=== PATIENT | female | born 1945 | race Caucasian/White ===

== ENCOUNTER 2020-02-23 12:28 | Inpatient (IN) ==
[2020-02-23] MEDS ORDERED: Senna TAB 8.6 mg TAB FEED TUBE PRN (15:09)
[2020-02-23] MEDS ORDERED: Docusate LIQ 100 MG/10 ML UDC G TUBE PRN (15:10)
[2020-02-23] MEDS ORDERED: Dextrose 50% Syringe 50 ml 25 GM/50 ML SYRINGE IV PUSH PRN (15:12)
[2020-02-23] MEDS: Calcium Carbonate LIQ 1,250 mg/5 ml UDC FEED TUBE SCH ×2 (16:10→21:30)
[2020-02-23] MEDS: Insulin LISPRO 100 units/ml(*) SUBCUT SCH (18:00)
[2020-02-23] MEDS: Cephalexin SUSP ORALSYR 50 MG/ML FEED TUBE SCH ×2 (18:23→22:06)
[2020-02-23] MEDS: Heparin 5000 UNITS/ML VIAL(*) 1 ml vial SUBCUT SCH (21:26)
[2020-02-23] MEDS: QUINIDINE SULFATE 200 MG SCH (21:28)
[2020-02-23] MEDS: Famotidine SUSP ORALSYR 8 MG/ML G TUBE SCH (21:31)
[2020-02-24] MEDS: Insulin LISPRO 100 units/ml(*) SUBCUT SCH ×4 (00:11→19:38)
[2020-02-24 05:11] LABS: Albumin 2.4 g/dL (3.2-5.2); Albumin/Globulin Ratio 0.8 (1-3); BUN/Creatinine Ratio 42.2 (8-20); Calcium 8.3 mg/dL (8.6-10.3); EGFR African American 59.7 (>60); EGFR Non-African American 49.3 (>60); Globulin 2.9 g/dL (2-4); Potassium 4.6 mmol/L (3.5-5.0); Total Bilirubin 0.4 mg/dL (0.2-1.0); Total Protein 5.3 g/dL (6.4-8.9)
[2020-02-24 05:16] LABS: ABS Eosinophils 0.1 10^3/ul (0-0.6); ABS Lymphocytes 0.5 10^3/ul (1.0-4.8); ABS Monocytes 0.4 10^3/ul (0-0.8); Hematocrit 29 % (35-47); Hemoglobin 9.6 g/dL (12.0-16.0); Lymphocyte % 9.8 %; Mean Corpuscular HGB Conc 34 g/dL (31-36); Mean Corpuscular Hemoglobin 31 pg (27-31); Mean Corpuscular Volume 92 fL (80-97); Platelet Count 151 10^3/uL (150-450); Red Blood Count 3.11 10^6 /uL (3.70-4.87); Red Cell Distribution Width 19 % (10-15); White Blood Count 5.6 10^3/uL (3.5-10.8)
[2020-02-24] MEDS: Calcium Carbonate LIQ 1,250 mg/5 ml UDC FEED TUBE SCH ×3 (11:06→21:36)
[2020-02-24] MEDS: Cephalexin SUSP ORALSYR 50 MG/ML FEED TUBE SCH ×4 (11:06→21:30)
[2020-02-24] MEDS: Famotidine SUSP ORALSYR 8 MG/ML G TUBE SCH ×2 (11:07→21:28)
[2020-02-24] MEDS: Multivitamins ADULT w/MIN LIQ 15 ML UDC FEED TUBE SCH (11:07)
[2020-02-24] MEDS: Heparin 5000 UNITS/ML VIAL(*) 1 ml vial SUBCUT SCH ×2 (11:07→21:43)
[2020-02-24] MEDS: Potassium Chloride LIQUID 20 MEQ/15 ML LIQUID PEG TUBE SCH (11:08)
[2020-02-24] MEDS: QUINIDINE SULFATE 200 MG SCH ×2 (11:08→21:34)
[2020-02-25] MEDS: Insulin LISPRO 100 units/ml(*) SUBCUT SCH ×5 (00:17→23:52)
[2020-02-25 06:14] LABS: ABS Lymphocytes 0.6 10^3/ul (1.0-4.8); ABS Monocytes 0.3 10^3/ul (0-0.8); Eosinophil % 0.5 %; Hematocrit 28 % (35-47); Hemoglobin 9.4 g/dL (12.0-16.0); Lymphocyte % 9.6 %; Mean Corpuscular HGB Conc 34 g/dL (31-36); Mean Corpuscular Hemoglobin 31 pg (27-31); Mean Corpuscular Volume 92 fL (80-97); Mean Platelet Volume 7.6 fL (7.4-10.4); Platelet Count 148 10^3/uL (150-450); Red Blood Count 3.05 10^6 /uL (3.70-4.87); Red Cell Distribution Width 18 % (10-15); White Blood Count 6.6 10^3/uL (3.5-10.8)
[2020-02-25 06:31] LABS: Albumin 2.3 g/dL (3.2-5.2); Albumin/Globulin Ratio 0.8 (1-3); BUN/Creatinine Ratio 39.3 (8-20); Calcium 8.4 mg/dL (8.6-10.3); EGFR Non-African American 50.4 (>60); Globulin 2.9 g/dL (2-4); Potassium 4.6 mmol/L (3.5-5.0); Total Bilirubin 0.4 mg/dL (0.2-1.0); Total Protein 5.2 g/dL (6.4-8.9)
[2020-02-25] MEDS: Multivitamins ADULT w/MIN LIQ 15 ML UDC FEED TUBE SCH (11:40)
[2020-02-25] MEDS: Potassium Chloride LIQUID 20 MEQ/15 ML LIQUID PEG TUBE SCH (11:40)
[2020-02-25] MEDS: QUINIDINE SULFATE 200 MG SCH ×2 (11:40→21:27)
[2020-02-25] MEDS: Famotidine SUSP ORALSYR 8 MG/ML G TUBE SCH ×2 (11:40→21:23)
[2020-02-25] MEDS: Calcium Carbonate LIQ 1,250 mg/5 ml UDC FEED TUBE SCH ×3 (11:40→21:25)
[2020-02-25] MEDS: Cephalexin SUSP ORALSYR 50 MG/ML FEED TUBE SCH ×4 (11:40→21:22)
[2020-02-25] MEDS: Heparin 5000 UNITS/ML VIAL(*) 1 ml vial SUBCUT SCH ×2 (11:40→21:31)
[2020-02-26] MEDS: Insulin LISPRO 100 units/ml(*) SUBCUT SCH ×3 (06:06→18:25)
[2020-02-26 10:59] LABS: C Reactive Protein 66.76 mg/L (<8.01)
[2020-02-26] MEDS: Famotidine SUSP ORALSYR 8 MG/ML G TUBE SCH ×2 (11:44→21:40)
[2020-02-26] MEDS: Calcium Carbonate LIQ 1,250 mg/5 ml UDC FEED TUBE SCH ×3 (11:44→21:23)
[2020-02-26] MEDS: Heparin 5000 UNITS/ML VIAL(*) 1 ml vial SUBCUT SCH ×2 (11:44→21:38)
[2020-02-26] MEDS: Cephalexin SUSP ORALSYR 50 MG/ML FEED TUBE SCH ×4 (11:44→21:24)
[2020-02-26] MEDS: Multivitamins ADULT w/MIN LIQ 15 ML UDC FEED TUBE SCH (11:45)
[2020-02-26] MEDS: Potassium Chloride LIQUID 20 MEQ/15 ML LIQUID PEG TUBE SCH (11:45)
[2020-02-26] MEDS: QUINIDINE SULFATE 200 MG SCH ×2 (11:45→21:24)
[2020-02-27] MEDS: Insulin LISPRO 100 units/ml(*) SUBCUT SCH ×5 (00:52→23:55)
[2020-02-27] MEDS: Multivitamins ADULT w/MIN LIQ 15 ML UDC FEED TUBE SCH (09:16)
[2020-02-27] MEDS: Calcium Carbonate LIQ 1,250 mg/5 ml UDC FEED TUBE SCH ×3 (09:16→20:41)
[2020-02-27] MEDS: Potassium Chloride LIQUID 20 MEQ/15 ML LIQUID PEG TUBE SCH (09:16)
[2020-02-27] MEDS: Cephalexin SUSP ORALSYR 50 MG/ML FEED TUBE SCH ×4 (09:16→20:43)
[2020-02-27] MEDS: Heparin 5000 UNITS/ML VIAL(*) 1 ml vial SUBCUT SCH ×2 (09:17→20:44)
[2020-02-27] MEDS: Famotidine SUSP ORALSYR 8 MG/ML G TUBE SCH ×2 (09:18→20:43)
[2020-02-27] MEDS: QUINIDINE SULFATE 200 MG SCH ×2 (09:22→20:42)
[2020-02-28] MEDS: Insulin LISPRO 100 units/ml(*) SUBCUT SCH ×4 (05:37→23:37)
[2020-02-28 05:52] LABS: ABS Lymphocytes 0.5 10^3/ul (1.0-4.8); ABS Monocytes 0.4 10^3/ul (0-0.8); Eosinophil % 0.6 %; Hematocrit 27 % (35-47); Hemoglobin 8.9 g/dL (12.0-16.0); Lymphocyte % 6.7 %; Mean Corpuscular HGB Conc 34 g/dL (31-36); Mean Corpuscular Hemoglobin 31 pg (27-31); Mean Corpuscular Volume 92 fL (80-97); Mean Platelet Volume 7.7 fL (7.4-10.4); Platelet Count 169 10^3/uL (150-450); Red Blood Count 2.89 10^6 /uL (3.70-4.87); Red Cell Distribution Width 19 % (10-15); White Blood Count 7.3 10^3/uL (3.5-10.8)
[2020-02-28 06:21] LABS: Albumin 2.5 g/dL (3.2-5.2); Albumin/Globulin Ratio 0.8 (1-3); BUN/Creatinine Ratio 35.5 (8-20); Calcium 8.4 mg/dL (8.6-10.3); EGFR Non-African American 50.4 (>60); Potassium 4.7 mmol/L (3.5-5.0); Total Bilirubin 0.4 mg/dL (0.2-1.0); Total Protein 5.5 g/dL (6.4-8.9)
[2020-02-28] MEDS: QUINIDINE SULFATE 200 MG SCH ×2 (08:42→21:09)
[2020-02-28] MEDS: Heparin 5000 UNITS/ML VIAL(*) 1 ml vial SUBCUT SCH ×2 (08:49→21:10)
[2020-02-28] MEDS: Cephalexin SUSP ORALSYR 50 MG/ML FEED TUBE SCH ×4 (08:49→21:09)
[2020-02-28] MEDS: Famotidine SUSP ORALSYR 8 MG/ML G TUBE SCH ×2 (08:49→21:09)
[2020-02-28] MEDS: Calcium Carbonate LIQ 1,250 mg/5 ml UDC FEED TUBE SCH ×3 (08:49→21:10)
[2020-02-28] MEDS: Multivitamins ADULT w/MIN LIQ 15 ML UDC FEED TUBE SCH (08:50)
[2020-02-28] MEDS: Potassium Chloride LIQUID 20 MEQ/15 ML LIQUID PEG TUBE SCH (08:50)
[2020-02-29] MEDS: Insulin LISPRO 100 units/ml(*) SUBCUT SCH ×4 (05:40→23:33)
[2020-02-29] MEDS: Calcium Carbonate LIQ 1,250 mg/5 ml UDC FEED TUBE SCH ×3 (08:41→21:59)
[2020-02-29] MEDS: Cephalexin SUSP ORALSYR 50 MG/ML FEED TUBE SCH ×3 (08:42→17:45)
[2020-02-29] MEDS: Multivitamins ADULT w/MIN LIQ 15 ML UDC FEED TUBE SCH (08:42)
[2020-02-29] MEDS: Heparin 5000 UNITS/ML VIAL(*) 1 ml vial SUBCUT SCH ×2 (08:42→22:12)
[2020-02-29] MEDS: Famotidine SUSP ORALSYR 8 MG/ML G TUBE SCH ×2 (08:42→21:59)
[2020-02-29] MEDS: QUINIDINE SULFATE 200 MG SCH ×2 (08:42→21:53)
[2020-02-29] MEDS: Potassium Chloride LIQUID 20 MEQ/15 ML LIQUID PEG TUBE SCH (08:42)
[2020-02-29] MEDS ORDERED: Insulin GLARGINE 100 un/ml (*) 10 ml VIAL SUBCUT SCH (18:00)
[2020-02-29] MEDS ORDERED: Cephalexin SUSP ORALSYR 50 MG/ML PO SCH (21:00)
[2020-03-01] MEDS: Insulin LISPRO 100 units/ml(*) SUBCUT SCH ×4 (05:47→23:46)
[2020-03-01] MEDS: Calcium Carb 1250 mg TAB (500 mg elemental calcium) PO SCH ×3 (09:43→21:05)
[2020-03-01] MEDS: Heparin 5000 UNITS/ML VIAL(*) 1 ml vial SUBCUT SCH ×2 (10:40→20:48)
[2020-03-01] MEDS: QUINIDINE SULFATE 200 MG SCH ×2 (10:40→20:49)
[2020-03-01] MEDS: Multivitamins/Minerals TAB PO SCH (10:40)
[2020-03-01] MEDS: Potassium Chlor 10 meq TAB PO SCH (10:40)
[2020-03-01] MEDS ORDERED: Insulin GLARGINE 100 un/ml (*) 10 ml VIAL SUBCUT SCH (18:00)
[2020-03-01] MEDS: Insulin GLARGINE 100 un/ml (*) 10 ml VIAL SUBCUT SCH (18:33)
[2020-03-02] MEDS: Insulin LISPRO 100 units/ml(*) SUBCUT SCH ×3 (05:36→17:26)
[2020-03-02] MEDS: QUINIDINE SULFATE 200 MG SCH ×2 (09:29→21:12)
[2020-03-02] MEDS: Multivitamins/Minerals TAB PO SCH (09:31)
[2020-03-02] MEDS: Potassium Chlor 10 meq TAB PO SCH (09:32)
[2020-03-02] MEDS: Calcium Carb 1250 mg TAB (500 mg elemental calcium) PO SCH ×3 (09:33→21:17)
[2020-03-02] MEDS: Heparin 5000 UNITS/ML VIAL(*) 1 ml vial SUBCUT SCH ×2 (09:35→21:15)
[2020-03-02] MEDS: Insulin GLARGINE 100 un/ml (*) 10 ml VIAL SUBCUT SCH (17:50)
[2020-03-03] MEDS: Insulin LISPRO 100 units/ml(*) SUBCUT SCH ×4 (00:26→16:59)
[2020-03-03] MEDS: QUINIDINE SULFATE 200 MG SCH ×2 (09:07→21:48)
[2020-03-03] MEDS: Potassium Chlor 10 meq TAB PO SCH (09:08)
[2020-03-03] MEDS: Multivitamins/Minerals TAB PO SCH (09:09)
[2020-03-03] MEDS: Calcium Carb 1250 mg TAB (500 mg elemental calcium) PO SCH ×3 (09:10→21:45)
[2020-03-03] MEDS: Heparin 5000 UNITS/ML VIAL(*) 1 ml vial SUBCUT SCH ×2 (09:11→21:43)
[2020-03-03] MEDS: Insulin GLARGINE 100 un/ml (*) 10 ml VIAL SUBCUT SCH (16:59)
[2020-03-04] MEDS: Insulin LISPRO 100 units/ml(*) SUBCUT SCH ×5 (00:32→23:30)
[2020-03-04] MEDS: Potassium Chlor 10 meq TAB PO SCH (10:16)
[2020-03-04] MEDS: Multivitamins/Minerals TAB PO SCH (10:16)
[2020-03-04] MEDS: Heparin 5000 UNITS/ML VIAL(*) 1 ml vial SUBCUT SCH ×2 (10:16→20:53)
[2020-03-04] MEDS: QUINIDINE SULFATE 200 MG SCH ×2 (10:16→20:54)
[2020-03-04] MEDS: Calcium Carb 1250 mg TAB (500 mg elemental calcium) PO SCH ×3 (10:16→20:51)
[2020-03-04] MEDS: Insulin GLARGINE 100 un/ml (*) 10 ml VIAL SUBCUT SCH (18:03)
[2020-03-05] MEDS: Insulin LISPRO 100 units/ml(*) SUBCUT SCH ×4 (05:50→23:30)
[2020-03-05] MEDS: Heparin 5000 UNITS/ML VIAL(*) 1 ml vial SUBCUT SCH ×2 (08:53→21:37)
[2020-03-05] MEDS: Potassium Chlor 10 meq TAB PO SCH (08:54)
[2020-03-05] MEDS: Multivitamins/Minerals TAB PO SCH (08:55)
[2020-03-05] MEDS: Calcium Carb 1250 mg TAB (500 mg elemental calcium) PO SCH ×3 (08:55→21:33)
[2020-03-05] MEDS: QUINIDINE SULFATE 200 MG SCH ×2 (08:55→21:36)
[2020-03-05] MEDS: Insulin GLARGINE 100 un/ml (*) 10 ml VIAL SUBCUT SCH (18:09)
[2020-03-06] MEDS: Insulin LISPRO 100 units/ml(*) SUBCUT SCH ×4 (05:39→23:38)
[2020-03-06 07:05] LABS: ABS Lymphocytes 0.5 10^3/ul (1.0-4.8); ABS Monocytes 0.4 10^3/ul (0-0.8); Eosinophil % 0.7 %; Hematocrit 28 % (35-47); Hemoglobin 9.2 g/dL (12.0-16.0); Lymphocyte % 10.1 %; Mean Corpuscular HGB Conc 33 g/dL (31-36); Mean Corpuscular Hemoglobin 31 pg (27-31); Mean Corpuscular Volume 94 fL (80-97); Mean Platelet Volume 6.7 fL (7.4-10.4); Platelet Count 213 10^3/uL (150-450); Red Blood Count 2.95 10^6 /uL (3.70-4.87); Red Cell Distribution Width 21 % (10-15); White Blood Count 5.3 10^3/uL (3.5-10.8)
[2020-03-06 07:23] LABS: Albumin 2.7 g/dL (3.2-5.2); Albumin/Globulin Ratio 0.9 (1-3); BUN/Creatinine Ratio 28.3 (8-20); Calcium 9.6 mg/dL (8.6-10.3); EGFR African American 57.3 (>60); EGFR Non-African American 47.3 (>60); Total Bilirubin 0.4 mg/dL (0.2-1.0); Total Protein 5.7 g/dL (6.4-8.9)
[2020-03-06 07:36] LABS: Potassium 5.1 mmol/L (3.5-5.0)
[2020-03-06] MEDS: Multivitamins/Minerals TAB PO SCH (08:57)
[2020-03-06] MEDS: Calcium Carb 1250 mg TAB (500 mg elemental calcium) PO SCH ×3 (08:57→21:40)
[2020-03-06] MEDS: Potassium Chlor 10 meq TAB PO SCH (08:58)
[2020-03-06] MEDS: Heparin 5000 UNITS/ML VIAL(*) 1 ml vial SUBCUT SCH ×2 (08:58→21:43)
[2020-03-06] MEDS: QUINIDINE SULFATE 200 MG SCH ×2 (08:58→21:39)
[2020-03-06] MEDS: Insulin GLARGINE 100 un/ml (*) 10 ml VIAL SUBCUT SCH (17:49)
[2020-03-07] MEDS: Insulin LISPRO 100 units/ml(*) SUBCUT SCH ×3 (05:00→16:55)
[2020-03-07] MEDS: Calcium Carb 1250 mg TAB (500 mg elemental calcium) PO SCH ×3 (08:35→20:19)
[2020-03-07] MEDS: Multivitamins/Minerals TAB PO SCH (08:36)
[2020-03-07] MEDS: Heparin 5000 UNITS/ML VIAL(*) 1 ml vial SUBCUT SCH ×2 (08:36→20:21)
[2020-03-07] MEDS: QUINIDINE SULFATE 200 MG SCH ×2 (08:36→20:19)
[2020-03-07] MEDS: Insulin GLARGINE 100 un/ml (*) 10 ml VIAL SUBCUT SCH (16:54)
[2020-03-08] MEDS: Insulin LISPRO 100 units/ml(*) SUBCUT SCH ×4 (01:07→16:58)
[2020-03-08] MEDS: Heparin 5000 UNITS/ML VIAL(*) 1 ml vial SUBCUT SCH ×2 (09:04→20:00)
[2020-03-08] MEDS: QUINIDINE SULFATE 200 MG SCH ×2 (09:06→20:02)
[2020-03-08] MEDS: Multivitamins/Minerals TAB PO SCH (09:08)
[2020-03-08] MEDS: Calcium Carb 1250 mg TAB (500 mg elemental calcium) PO SCH ×3 (09:10→19:59)
[2020-03-08] MEDS: Insulin GLARGINE 100 un/ml (*) 10 ml VIAL SUBCUT SCH (17:04)
[2020-03-09] MEDS: Insulin LISPRO 100 units/ml(*) SUBCUT SCH ×5 (06:15→23:55)
[2020-03-09] MEDS: Heparin 5000 UNITS/ML VIAL(*) 1 ml vial SUBCUT SCH ×2 (10:09→21:13)
[2020-03-09] MEDS: Calcium Carb 1250 mg TAB (500 mg elemental calcium) PO SCH ×3 (10:12→21:12)
[2020-03-09] MEDS: Multivitamins/Minerals TAB PO SCH (10:13)
[2020-03-09] MEDS: QUINIDINE SULFATE 200 MG SCH ×2 (10:13→21:14)
[2020-03-09] MEDS: Insulin GLARGINE 100 un/ml (*) 10 ml VIAL SUBCUT SCH (18:07)
[2020-03-10] MEDS: Insulin LISPRO 100 units/ml(*) SUBCUT SCH ×4 (05:36→23:37)
[2020-03-10] MEDS: Calcium Carb 1250 mg TAB (500 mg elemental calcium) PO SCH ×3 (10:47→21:37)
[2020-03-10] MEDS: QUINIDINE SULFATE 200 MG SCH ×2 (10:47→21:39)
[2020-03-10] MEDS: Heparin 5000 UNITS/ML VIAL(*) 1 ml vial SUBCUT SCH ×2 (10:47→21:37)
[2020-03-10] MEDS: Multivitamins/Minerals TAB PO SCH (10:47)
[2020-03-10] MEDS: Insulin GLARGINE 100 un/ml (*) 10 ml VIAL SUBCUT SCH (18:58)
[2020-03-11] MEDS: Insulin LISPRO 100 units/ml(*) SUBCUT SCH ×4 (05:36→23:39)
[2020-03-11] MEDS: Calcium Carb 1250 mg TAB (500 mg elemental calcium) PO SCH ×3 (08:44→20:54)
[2020-03-11] MEDS: Heparin 5000 UNITS/ML VIAL(*) 1 ml vial SUBCUT SCH ×2 (08:45→20:56)
[2020-03-11] MEDS: Multivitamins/Minerals TAB PO SCH (08:45)
[2020-03-11] MEDS: QUINIDINE SULFATE 200 MG SCH ×2 (08:45→20:54)
[2020-03-11] MEDS: Insulin GLARGINE 100 un/ml (*) 10 ml VIAL SUBCUT SCH (17:21)
[2020-03-12] MEDS: Insulin LISPRO 100 units/ml(*) SUBCUT SCH ×4 (07:22→23:51)
[2020-03-12] MEDS: Calcium Carb 1250 mg TAB (500 mg elemental calcium) PO SCH ×3 (08:51→19:54)
[2020-03-12] MEDS: Heparin 5000 UNITS/ML VIAL(*) 1 ml vial SUBCUT SCH ×2 (08:52→19:55)
[2020-03-12] MEDS: Multivitamins/Minerals TAB PO SCH (08:53)
[2020-03-12] MEDS: QUINIDINE SULFATE 200 MG SCH ×2 (08:53→19:53)
[2020-03-12] MEDS: Insulin GLARGINE 100 un/ml (*) 10 ml VIAL SUBCUT SCH (17:06)
[2020-03-13 06:07] LABS: ABS Eosinophils 0.1 10^3/ul (0-0.6); ABS Lymphocytes 0.6 10^3/ul (1.0-4.8); ABS Monocytes 0.5 10^3/ul (0-0.8); Eosinophil % 1.4 %; Hematocrit 30 % (35-47); Lymphocyte % 14.2 %; Mean Corpuscular HGB Conc 33 g/dL (31-36); Mean Corpuscular Hemoglobin 32 pg (27-31); Mean Corpuscular Volume 95 fL (80-97); Mean Platelet Volume 6.5 fL (7.4-10.4); Platelet Count 192 10^3/uL (150-450); Red Blood Count 3.16 10^6 /uL (3.70-4.87); Red Cell Distribution Width 22 % (10-15); White Blood Count 4.2 10^3/uL (3.5-10.8)
[2020-03-13] MEDS: Insulin LISPRO 100 units/ml(*) SUBCUT SCH ×4 (06:45→23:43)
[2020-03-13 08:21] LABS: Albumin 2.9 g/dL (3.2-5.2); Calcium 10.2 mg/dL (8.6-10.3); Total Bilirubin 0.4 mg/dL (0.2-1.0)
[2020-03-13 08:27] LABS: BUN/Creatinine Ratio 26.7 (8-20); EGFR African American 55.6 (>60); EGFR Non-African American 45.9 (>60); Total Protein 5.9 g/dL (6.4-8.9)
[2020-03-13] MEDS: QUINIDINE SULFATE 200 MG SCH ×2 (10:15→20:16)
[2020-03-13] MEDS: Multivitamins/Minerals TAB PO SCH (10:16)
[2020-03-13] MEDS: Calcium Carb 1250 mg TAB (500 mg elemental calcium) PO SCH ×3 (10:16→20:17)
[2020-03-13] MEDS: Heparin 5000 UNITS/ML VIAL(*) 1 ml vial SUBCUT SCH ×2 (10:18→20:45)
[2020-03-13] MEDS: Insulin GLARGINE 100 un/ml (*) 10 ml VIAL SUBCUT SCH (17:05)
[2020-03-14] MEDS: Insulin LISPRO 100 units/ml(*) SUBCUT SCH ×4 (05:10→23:46)
[2020-03-14] MEDS: Calcium Carb 1250 mg TAB (500 mg elemental calcium) PO SCH ×3 (08:37→21:20)
[2020-03-14] MEDS: Multivitamins/Minerals TAB PO SCH (08:37)
[2020-03-14] MEDS: QUINIDINE SULFATE 200 MG SCH ×2 (08:38→21:20)
[2020-03-14] MEDS: Heparin 5000 UNITS/ML VIAL(*) 1 ml vial SUBCUT SCH ×2 (08:39→21:21)
[2020-03-14] MEDS: Insulin GLARGINE 100 un/ml (*) 10 ml VIAL SUBCUT SCH (19:01)
[2020-03-15] MEDS: Insulin LISPRO 100 units/ml(*) SUBCUT SCH ×4 (07:20→23:31)
[2020-03-15] MEDS: Heparin 5000 UNITS/ML VIAL(*) 1 ml vial SUBCUT SCH ×2 (09:16→21:10)
[2020-03-15] MEDS: Calcium Carb 1250 mg TAB (500 mg elemental calcium) PO SCH ×3 (09:18→21:14)
[2020-03-15] MEDS: Multivitamins/Minerals TAB PO SCH (09:18)
[2020-03-15] MEDS: QUINIDINE SULFATE 200 MG SCH ×2 (09:19→21:12)
[2020-03-15] MEDS: Insulin GLARGINE 100 un/ml (*) 10 ml VIAL SUBCUT SCH (18:52)
[2020-03-16 05:32] LABS: BUN/Creatinine Ratio 30.8 (8-20); Calcium 10.3 mg/dL (8.6-10.3); EGFR Non-African American 45.5 (>60)
[2020-03-16] MEDS: Insulin LISPRO 100 units/ml(*) SUBCUT SCH ×3 (05:32→17:10)
[2020-03-16] MEDS: Calcium Carb 1250 mg TAB (500 mg elemental calcium) PO SCH ×3 (09:10→21:29)
[2020-03-16] MEDS: Heparin 5000 UNITS/ML VIAL(*) 1 ml vial SUBCUT SCH ×2 (09:11→21:31)
[2020-03-16] MEDS: QUINIDINE SULFATE 200 MG SCH ×2 (09:11→21:30)
[2020-03-16] MEDS: Multivitamins/Minerals TAB PO SCH (09:11)
[2020-03-16] MEDS: Insulin GLARGINE 100 un/ml (*) 10 ml VIAL SUBCUT SCH (17:10)
[2020-03-17] MEDS: Insulin LISPRO 100 units/ml(*) SUBCUT SCH ×4 (00:03→18:00)
[2020-03-17] MEDS: Calcium Carb 1250 mg TAB (500 mg elemental calcium) PO SCH ×3 (10:15→20:37)
[2020-03-17] MEDS: Heparin 5000 UNITS/ML VIAL(*) 1 ml vial SUBCUT SCH ×2 (10:16→20:41)
[2020-03-17] MEDS: QUINIDINE SULFATE 200 MG SCH ×2 (10:17→20:40)
[2020-03-17] MEDS: Multivitamins/Minerals TAB PO SCH (10:17)
[2020-03-17] MEDS: Insulin GLARGINE 100 un/ml (*) 10 ml VIAL SUBCUT SCH (18:00)
[2020-03-18] MEDS: Insulin LISPRO 100 units/ml(*) SUBCUT SCH ×5 (00:32→23:40)
[2020-03-18] MEDS: Heparin 5000 UNITS/ML VIAL(*) 1 ml vial SUBCUT SCH ×2 (08:33→21:29)
[2020-03-18] MEDS: QUINIDINE SULFATE 200 MG SCH ×2 (08:34→21:28)
[2020-03-18] MEDS: Multivitamins/Minerals TAB PO SCH (08:35)
[2020-03-18] MEDS: Calcium Carb 1250 mg TAB (500 mg elemental calcium) PO SCH ×3 (08:35→21:27)
[2020-03-18] MEDS: Insulin GLARGINE 100 un/ml (*) 10 ml VIAL SUBCUT SCH (18:00)
[2020-03-19 05:51] LABS: Albumin 2.9 g/dL (3.2-5.2); Albumin/Globulin Ratio 0.9 (1-3); Calcium 10.8 mg/dL (8.6-10.3); EGFR African American 52.4 (>60); EGFR Non-African American 43.3 (>60); Globulin 3.1 g/dL (2-4); Potassium 4.8 mmol/L (3.5-5.0); Total Bilirubin 0.3 mg/dL (0.2-1.0)
[2020-03-19] MEDS: Insulin LISPRO 100 units/ml(*) SUBCUT SCH ×4 (07:11→23:33)
[2020-03-19] MEDS: Heparin 5000 UNITS/ML VIAL(*) 1 ml vial SUBCUT SCH ×2 (09:30→20:11)
[2020-03-19] MEDS: Multivitamins/Minerals TAB PO SCH (09:30)
[2020-03-19] MEDS: Calcium Carb 1250 mg TAB (500 mg elemental calcium) PO SCH ×3 (09:30→20:12)
[2020-03-19] MEDS: QUINIDINE SULFATE 200 MG SCH ×2 (09:30→20:11)
[2020-03-19] MEDS: Insulin GLARGINE 100 un/ml (*) 10 ml VIAL SUBCUT SCH (18:07)
[2020-03-20 06:47] LABS: ABS Eosinophils 0.1 10^3/ul (0-0.6); ABS Lymphocytes 0.8 10^3/ul (1.0-4.8); ABS Monocytes 0.5 10^3/ul (0-0.8); Eosinophil % 1.6 %; Hematocrit 29 % (35-47); Hemoglobin 9.9 g/dL (12.0-16.0); Lymphocyte % 15.8 %; Mean Corpuscular HGB Conc 34 g/dL (31-36); Mean Corpuscular Hemoglobin 33 pg (27-31); Mean Corpuscular Volume 96 fL (80-97); Mean Platelet Volume 6.8 fL (7.4-10.4); Platelet Count 167 10^3/uL (150-450); Red Cell Distribution Width 21 % (10-15); White Blood Count 4.9 10^3/uL (3.5-10.8)
[2020-03-20] MEDS: Insulin LISPRO 100 units/ml(*) SUBCUT SCH ×3 (06:56→18:35)
[2020-03-20 07:04] LABS: EGFR African American 54.5 (>60); Potassium 4.6 mmol/L (3.5-5.0); Total Bilirubin 0.4 mg/dL (0.2-1.0)
[2020-03-20] MEDS: Calcium Carb 1250 mg TAB (500 mg elemental calcium) PO SCH ×3 (09:49→20:11)
[2020-03-20] MEDS: Heparin 5000 UNITS/ML VIAL(*) 1 ml vial SUBCUT SCH ×2 (09:49→20:10)
[2020-03-20] MEDS: Multivitamins/Minerals TAB PO SCH (09:50)
[2020-03-20] MEDS: QUINIDINE SULFATE 200 MG SCH ×2 (09:50→20:11)
[2020-03-20] MEDS: Insulin GLARGINE 100 un/ml (*) 10 ml VIAL SUBCUT SCH (18:36)
[2020-03-21] MEDS: Insulin LISPRO 100 units/ml(*) SUBCUT SCH ×5 (01:04→23:30)
[2020-03-21] MEDS: Multivitamins/Minerals TAB PO SCH (08:07)
[2020-03-21] MEDS: Calcium Carb 1250 mg TAB (500 mg elemental calcium) PO SCH ×3 (08:08→20:07)
[2020-03-21] MEDS: QUINIDINE SULFATE 200 MG SCH ×2 (08:08→20:08)
[2020-03-21] MEDS: Heparin 5000 UNITS/ML VIAL(*) 1 ml vial SUBCUT SCH ×2 (08:09→20:10)
[2020-03-21] MEDS: Insulin GLARGINE 100 un/ml (*) 10 ml VIAL SUBCUT SCH (17:04)
[2020-03-22] MEDS: Insulin LISPRO 100 units/ml(*) SUBCUT SCH ×4 (05:45→21:01)
[2020-03-22] MEDS: Heparin 5000 UNITS/ML VIAL(*) 1 ml vial SUBCUT SCH ×2 (11:05→21:01)
[2020-03-22] MEDS: Calcium Carb 1250 mg TAB (500 mg elemental calcium) PO SCH ×3 (11:05→21:02)
[2020-03-22] MEDS: Multivitamins/Minerals TAB PO SCH (11:05)
[2020-03-22] MEDS: QUINIDINE SULFATE 200 MG SCH ×2 (11:06→22:47)
[2020-03-23] MEDS: Calcium Carb 1250 mg TAB (500 mg elemental calcium) PO SCH ×3 (09:34→19:56)
[2020-03-23] MEDS: QUINIDINE SULFATE 200 MG SCH ×2 (09:35→19:57)
[2020-03-23] MEDS: Heparin 5000 UNITS/ML VIAL(*) 1 ml vial SUBCUT SCH ×2 (09:35→19:58)
[2020-03-23] MEDS: Multivitamins/Minerals TAB PO SCH (09:35)
[2020-03-23] MEDS: Insulin LISPRO 100 units/ml(*) SUBCUT SCH ×4 (09:41→21:05)
[2020-03-24] MEDS: Insulin LISPRO 100 units/ml(*) SUBCUT SCH ×4 (08:23→20:06)
[2020-03-24] MEDS: Multivitamins/Minerals TAB PO SCH (08:29)
[2020-03-24] MEDS: Calcium Carb 1250 mg TAB (500 mg elemental calcium) PO SCH ×3 (08:29→20:04)
[2020-03-24] MEDS: QUINIDINE SULFATE 200 MG SCH ×2 (08:30→20:05)
[2020-03-24] MEDS: Heparin 5000 UNITS/ML VIAL(*) 1 ml vial SUBCUT SCH ×2 (08:36→20:03)
[2020-03-25] MEDS: Insulin LISPRO 100 units/ml(*) SUBCUT SCH ×4 (07:48→20:22)
[2020-03-25] MEDS: Calcium Carb 1250 mg TAB (500 mg elemental calcium) PO SCH ×3 (10:11→20:19)
[2020-03-25] MEDS: Multivitamins/Minerals TAB PO SCH (10:11)
[2020-03-25] MEDS: QUINIDINE SULFATE 200 MG SCH ×2 (10:12→20:20)
[2020-03-25] MEDS: Heparin 5000 UNITS/ML VIAL(*) 1 ml vial SUBCUT SCH ×2 (10:13→20:22)
[2020-03-26 04:25] VITALS: BP 113/48
[2020-03-26] MEDS: Calcium Carb 1250 mg TAB (500 mg elemental calcium) PO SCH ×2 (09:29→14:43)
[2020-03-26] MEDS: Multivitamins/Minerals TAB PO SCH (09:29)
[2020-03-26] MEDS: Heparin 5000 UNITS/ML VIAL(*) 1 ml vial SUBCUT SCH (09:30)
[2020-03-26] MEDS: QUINIDINE SULFATE 200 MG SCH (09:30)
[2020-03-26] MEDS: Insulin LISPRO 100 units/ml(*) SUBCUT SCH ×2 (09:36→14:43)
== END 2020-03-26 16:01 | disposition home health service (06) | DRG 939 ==
LOC: PMRU 13:50
PROVIDERS: ADMIT Physical Medicine & Rehabilitation; ATTEND Physical Medicine & Rehabilitation